=== PATIENT | female | born 1985 | race Two or more races ===

== ENCOUNTER 2025-09-18 17:37 | Emergency (ER) | payer OTHER, SELFPAY ==
[2025-09-18 17:39] VITALS: BMI 32.1
[2025-09-18 17:52] VITALS: BP 127/83; PULSE 67; RESP 18; TEMP 37.2; O2SAT 98
--- NOTE | 2025-09-18 18:07 | EDRME_ITS ---
Rapid Medical Screening Exam [facility] Arrival date/time: 09/18/25 17:37 This is a 39-year-old female that comes into the emergency room with complaints of constipation for 6 days. Patient states she was seen at [facility] approximately 4 days ago for similar complaints. Patient is complaining of most of the left-sided abdominal pain. Patient states she became concerned because her stools coming out black. Patient denies past medical history. I have greeted and performed a focused initial assessment of this patient. Initial appropriate labs ordered at this time. A comprehensive ED assessment and evaluation of the patient and analysis of all test and completion of medical decision making process will be conducted by additional ED provider. Chief Complaint: Abdominal Pain Time Seen by Provider: 09/18/25 18:03 Vital signs: Vital Signs Temperature 98.9 F 09/18/25 17:52 Pulse Rate 67 09/18/25 17:52 Respiratory Rate 18 09/18/25 17:52 Blood Pressure 127/83 09/18/25 17:52 Pulse Oximetry (%) 98 09/18/25 17:52 Oxygen Delivery Method Room Air 09/18/25 17:52 Exam: Diffuse abdominal pain, alert and oriented, breathing even and unlabored Clinical Impression: Abdominal pain
--- NOTE | 2025-09-18 18:07 | XR_ITS ---
Examination: Abdomen AP single view Technique: AP portable supine abdomen, single view Exam date and time: September 18, 2025, 1809 hours INDICATIONS: Abdominal pain and constipation beginning 6 days ago. FINDINGS: Large amount of stool in the right colon. No obstruction. No free air. No renal or ureteral calculi The osseous structures are intact IMPRESSION: Large amount of stool in the right colon, no obstruction
[2025-09-18 18:47] LABS: Basophils # (Auto) 0.0 Thou/mm3 (0.0-0.2); Basophils % (Auto) 1 % (0-2.5); Eosinophils # (Auto) 0.2 Thou/mm3 (0.0-0.5); Eosinophils % (Auto) 2 % (0-10); Hematocrit 34.4 % (36.0-46.0); Hemoglobin 11.7 g/dL (12.0-16.0); Immature Granulocytes Auto 0.01 Thou/mm3 (0.00-0.00); Lymphocytes # (Auto) 3.8 Thou/mm3 (1.0-4.8); Lymphocytes % (Auto) 44 % (10-50); Mean Corpuscular HGB Conc 34.0 g/dl (31.0-37.0); Mean Corpuscular Hemoglobin 28.4 pg (25.0-35.0); Mean Corpuscular Volume 84 fL (80-100); Monocytes # (Auto) 0.7 Thou/mm3 (0.0-0.8); Monocytes % (Auto) 8 % (0-12); Neutrophils # (Auto) 3.8 Thou/mm3 (1.8-7.7); Neutrophils % (Auto) 45 % (37-80); Nucleated Red Blood Cell # 0.00 Thou/mm3 (0.00-0.00); Nucleated Red Blood Cell % 0 /100 WBC (0); Platelet Count 281 Thou/mm3 (140-440); RDW Standard Deviation 39.0 fL (36.4-46.3); Red Blood Count 4.12 Miln/mm3 (4.00-5.20); White Blood Count 8.5 Thou/mm3 (3.6-11.0)
[2025-09-18 19:02] LABS: INR 1.1 (0.9-1.3); Prothrombin Time 11.7 Seconds (9.0-12.2)
[2025-09-18 19:18] LABS: Alanine Aminotransferase 9 U/L (10-49); Albumin, Serum 4.4 gm/dL (3.5-5.0); Albumin/Globulin Ratio 2.4 (1.2-2.2); Alkaline Phosphatase 50 U/L (46-116); Anion Gap 7 (7-16); Aspartate Amino Transferase 17 U/L (0-34); BUN/Creatinine Ratio 16 Ratio (12-20); Bilirubin,Total 1.0 mg/dL (0.3-1.2); Blood Urea Nitrogen 11 mg/dL (9-23); Calcium 9.2 mg/dL (8.3-10.6); Calcium (Corrected) 9.2 mg/dL (8.5-10.1); Carbon Dioxide 27.9 mMol/L (20.0-31.0); Chloride 106 mMol/L (98-107); Creatinine (Component) 0.7 mg/dL (0.6-1.3); Estimated Creatinine Clearance 106.6 mL/min (>60); Globulin 1.8 gm/dL (2.3-3.5); Glucose 96 mg/dL (74-106); Lipase 41 U/L (12-53); Osmolality,Calculated 280 (275-295); Potassium 3.8 mMol/L (3.4-5.1); Sodium 141 mMol/L (136-145); Total Protein 6.2 gm/dL (5.7-8.2); eGFR > 60 See Note
--- NOTE | 2025-09-18 19:20 | XR_ITS ---
Examination: CT abdomen with intravenous contrast CT pelvis with intravenous contrast 2-D coronal reconstructions 2-D sagittal reconstructions Date and time of exam: September 18, 2025, 2034 hours INDICATIONS: Left lower abdominal pain beginning 2 weeks ago.. CTDI: vol (mGy) 22.06 DLP: (mGycm) 862 Technique: Multiple axial sections of the abdomen and pelvis have been obtained. 64 slice high-resolution scanner used. 3 mm axial sections have been obtained, post intravenous injection 60 cc Isovue 370 2-D sagittal, coronal reconstructions obtained. Low dose protocols were performed. One or more of the following dose reduction techniques were used; automated exposure control, adjustment of the mA and/or KV according to patient size, use of iterative reconstruction technique. Findings: No focal liver or splenic lesion Small gallstones, gallbladder wall does not appear thickened No pancreatic or adrenal mass No renal or ureteral calculi, no hydronephrosis Normal appendix No bowel obstruction No diverticulitis 12 mm focal area of uterine fibroid degeneration in the fundus of the uterus Small ovarian follicular cyst Bladder intact IMPRESSION: Cholelithiasis, negative for cholecystitis Normal appendix No bowel obstruction diverticulitis or free air
--- NOTE | 2025-09-18 19:21 | PD.EDABDPN ---
ED Abdominal Pain RME/HPI General Chief Complaint: Abdominal Pain Stated complaint: CONSTIPATED X6 DAYS, LUQ ABD PAIN X2 WEEKS Time seen by provider: 09/18/25 18:03 Arrival date/time: 09/18/25 17:37 39[facility]. Patient been having abdominal pain for the last few days, described as dull ache, more on the left lower quadrant, severity moderate. Patient has been complaining of constipation. He had a small bowel movement today after taking Linzess that was prescribed by PCP few days ago. Denies any vomiting denies any diarrhea denies any other complaints. Patient denies any fever. No medication was taken prior to ER visit. RME / HPI RME / HPI narrative: 09/18/25 17:37 This is a 39-year-old female that comes into the emergency room with complaints of constipation for 6 days. Patient states she was seen at [facility] approximately 4 days ago for similar complaints. Patient is complaining of most of the left-sided abdominal pain. Patient states she became concerned because her stools coming out black. Patient denies past medical history. I have greeted and performed a focused initial assessment of this patient. Initial appropriate labs ordered at this time. A comprehensive ED assessment and evaluation of the patient and analysis of all test and completion of medical decision making process will be conducted by additional ED provider. Exam: Diffuse abdominal pain, alert and oriented, breathing even and unlabored Impression: Abdominal pain Related Data Previous Rx's ?Medication ?Instructions ?Recorded hydrocodone 5 mg-acetaminophen 325 1 tab PO Q6H PRN pain #12 tabs 09/18/25 mg tablet ondansetron HCl 4 mg tablet 4 mg PO Q8H #10 tabs 09/18/25 peg 3350-electrolytes 236 240 ml PO Q10M #4,000 mL 09/18/25 gram-22.74 gram-6.74 gram-5.86 gram solution (Golytely) Allergies Allergy/AdvReac Type Severity Reaction Status Date / Time No Known Allergies Allergy Verified 09/18/25 17:42 Review of Systems Review of Systems Narrative Review of Systems: Review of system reviewed and within normal limits except mentioned in HPI ED Exam Narrative Physical exam: VITAL SIGNS: Reviewed. GENERAL APPEARANCE: Alert and interactive, follows commands, no acute distress, HEAD AND FACE: Non-traumatic. ENT: PERRL, pink conjunctivitis, eyelid no trauma, Mucous membrane moist. NECK: Supple, nontender, no nuchal rigidity. CHEST: No tenderness, no crepitus, no paradoxical movement, no retractions. LUNGS: Clear, well ventilated, symmetric, no rales, no wheezing, no ronchi, no stridor, good breath sounds bilaterally. HEART: Regular rate, regular rhythm, no murmur, no gallops. ABDOMEN: Soft, positive bowel sounds, nondistended, no guarding, no left lower quadrant tenderness, no rebound, no masses, RECTAL: Deferred. GENITAL: Deferred. NEUROLOGICAL: Gross motor function intact sensory function intact, Appropriate for age. MUSCULOSKELETAL: low back nontender, full range of motion. EXTREMITIES: Nontender, full range of motion. SKIN: Color pink, dry, no rash, no lacerations, no abrasions, no contusions. LYMPHATICS: Deferred. Course Quality Measures none Orders Category Date Time Status CT Screening NOW Care 09/18/25 19:20 Completed IV [Insert IV] NOW Care 09/18/25 19:[address] abdomen pelvis w con Stat Exams 09/18/25 19:20 Completed KUB [XR abdomen 1V] Stat Exams 09/18/25 18:07 Completed CBC Stat Lab 09/18/25 18:24 Completed Comprehensive Metabolic Panel Stat Lab 09/18/25 18:24 Completed HCG Qualitative,Urine Stat Lab 09/18/25 19:42 Completed Lipase Stat Lab 09/18/25 18:24 Completed PT [Prothrombin Time with INR] Stat Lab 09/18/25 18:24 Completed Urinalysis, C/S if Indicated Stat Lab 09/18/25 19:42 Completed Magnesium Citrate Liqd [Citrate of Magnesia Liqd] Med 09/18/25 19:10 Discontinued 300 ml PO X1 ONE Vital Signs Vital signs: Vital Signs Temperature 98.9 F 09/18/25 17:52 Pulse Rate 67 09/18/25 17:52 Respiratory Rate 18 09/18/25 17:52 Blood Pressure 127/83 09/18/25 17:52 Pulse Oximetry (%) 98 09/18/25 17:52 Oxygen Delivery Method Room Air 09/18/25 17:52 Abdominal Pain MDM MDM Narrative MDM Narrative:: 39-year-old female patient was brought in bySection family for evaluation regarding abdominal pain. Patient been having abdominal pain for the last few days, described as dull ache, more on the left lower quadrant, severity moderate. Patient has been complaining of constipation. He had a small bowel movement today after taking Linzess that was prescribed by PCP few days ago. Denies any vomiting denies any diarrhea denies any other complaints. Patient denies any fever. No medication was taken prior to ER visit. Care transferred to ANDRZE[facility] Cooper for final disposition Patient data External records reviewed:: None Clinical information provided by:: patient Social determinants that could affect healthcare access:: none Patient has the following chronic illnesses:: None How is presenting disease/condition affected by chronic disease/condition?: no chronic disease Evaluation data The following diagnostics were reviewed and interpreted by me:: lab results and radiology exam(s) Lab and/or radiology exams considered but not ordered:: None Interpretation Summary: Pending results Medications / Prescriptions Medications or Prescriptions considered but not ordered:: None Medication administrations:: Medication Administration History Discontinued Medications Magnesium Citrate (Magnesium Citrate 300 Ml Btl) 300 ml PO X1 ONE Stop: 09/18/25 19:11 Last Admin: 09/18/25 19:27 Dose: 300 ml Documented By: ANGELA Magnesium citrate Consultations Consultation(s) initiated? (list below): No Diagnosis Differential diagnosis abdominal pain: abdominal pain, constipation and diverticulitis Most likely diagnosis given after review of the tests above:: Cholelithiasis Admission Indicated Admission indicated?: not indicated Admission Request Was there a request for admission?: No Disposition Plan Disposition Plan: other (specify) (Pending final disposition laboratory results) Discharge Plan Plan Patient Disposition: HOME (Self Care) Discharge Disposition comment: stable Patient condition on transfer: Stable Prescriptions/Referrals Prescriptions/Med Rec: New peg 3350-electrolytes [Golytely] 236-22.74-6.74 -5.86 gram recon soln 240 ml PO Q10M Qty: 4000 0RF Rx Instructions: until fecal effluent is clear hydrocodone-acetaminophen 5-325 mg tablet 1 tab PO Q6H MDD max 4 tabs per day PRN (Reason: pain) Qty: 12 0RF ondansetron HCl 4 mg tablet 4 mg PO Q8H Qty: 10 0RF Referrals: Varun Whiting MD [Primary Care Provider] - In 1 week Problem List Clinical Impression: Constipation, Cholelithiasis, Ovarian cyst Patient/Caregiver Discharge Instructions Discharge Activity: activity as tolerated Education Materials: Treating Constipation, Treating Gallstones, Ovarian Cysts Additional Instructions: Thank you for the opportunity for serving you today. You are stable for discharged . You are advised to: Follow-up with your PCP in 1 to 2 days Return to ED for worsening of symptoms Increase oral fluids Take medication as prescribed Your urinalysis is negative for UTI Follow-up with your primary care physician in 2 days for reevaluation and to be referred to rn integrity and general surgeon for further evaluation and treatment of cholelithiasis and to be referred to DRAIN TECHNICIAN if for ovarian cyst worsening symptoms or any emergent concern return to the emergency room immediately or call 911 avoid fatty fried high cholesterol Print Language: Argentine Stand Alone Forms: Benita Award Info., Patient Portal Info Letter PA/AUTHORIZATION REP Supervising Physician PA/MARIELOS Supervising Physician: Dr. Lott
[2025-09-18] MEDS: MAGNESIUM CITRATE 300 ML BTL PO (19:27)
[2025-09-18 19:48] LABS: Collection Type, Urine Voided
[2025-09-18 19:58] LABS: HCG Qualitative,Urine Negative
[2025-09-18 20:08] LABS: Amorphous Crystals,Urine Present (Absent); Bacteria,Urine Rare; Bilirubin,Urine Negative (Negative); Blood,Urine Negative (Negative); Clarity,Urine Turbid (Clear/Hazy); Color,Urine Yellow (Lt Yel-Yel); Culture Indicated,Urine Not Indicated; Glucose, Urine Negative (Negative); Hyaline Casts,Urine < 1 /hpf (0-1); Ketones,Urine Trace (Negative); Leukocyte Esterase,Urine Positive (Negative); Nitrite,Urine Negative (Negative); PH,Urine 6.0 (5.0-7.0); Protein,Urine Trace (Neg - Trace); RBC,Urine 5 /hpf (0-3); Specific Gravity,Urine 1.037 (1.001-1.035); Squamous Epithelial Cell,Urine 19 /hpf (0-5); Urobilinogen,Urine Negative mg/dL (0.0-1.0); WBC,Urine 2 /hpf (0-5)
--- NOTE | 2025-09-18 23:23 | PD.EDADDENDU ---
Emergency Room Addendum Addendum Narrative: This is a case of 39-year-old female who came in in the emergency room due to abdominal pain patient was endorsed to me with PROPERTY AND EQUIPMENT CLERK Omaira for pending CT scan of the abdomen and pelvis I reviewed and agreed with the history and physical examination of the previous PROPERTY AND EQUIPMENT CLERK CT scan showed unremarkable except cholelithiasis and ovarian cysts at the time of exam abdominal exam is benign nonsurgical no guarding no rebound no rigidity no tenderness negative psoas Dunham sign patient was advised to follow-up with PCP in 2 days for reevaluation and to be referred to metal tile lather and general surgeon for cholelithiasis and OB for ovarian cyst if worsening symptoms or any emergent concern return precaution in the ER is advised Patient was discharged with comfortable condition walking with stable gait. Patient verbalized no further complains explained diagnosis and answered patient question. Patient is comfortable with the proposed management plan including the need to follow up with his/her primary care physician and any specialist if applicable Discussed patient for any urgent condition or worsening sx, He/She needed to go to emergency room immediately or call 911. Patient acknowledge the responsibility to follow up as instructed and to monitor her/his symptoms. For any persistence of the symptoms for more than 3-5 days return precaution advised. Discussed the result of the test and was given printed discharge instruction
== END 2025-09-18 23:31 | disposition home or self-care (01) ==
PROVIDERS: Nurse Practitioner Family; Emergency Provider Emergency Medicine; PCP Internal Medicine
DX: K59.00 Constipation, unspecified (principal); K80.20 Calculus of gallbladder without cholecystitis without obstruction; N83.209 Unspecified ovarian cyst, unspecified side
CPT/HCPCS: 36415; 74018; 74177; 80053; 81001; 81025; 83690; 85025; 85610; 99283; A4649; Q9967; A9270